=== PATIENT | male | born 1990 | race Caucasian/White ===

== ENCOUNTER 2022-04-29 20:45 | Emergency (ER) | payer SELFPAY ==
[~2022-04-29] VITALS: Ht 167.6 cm; Wt 81.6 kg
[2022-04-29 21:05] VITALS: BP 140/60
--- NOTE | 2022-04-29 21:08 | NUR ---
TO LOBBY A/W BED AMBULATORY
--- NOTE | 2022-04-29 23:12 | NUR ---
PT TO CHAIR B
--- NOTE | 2022-04-29 23:23 | NUR ---
PT TO BED #8
--- NOTE | 2022-04-29 23:30 | NUR ---
31/M BIB SELF C/C SHARP LEFT EAR PAIN 8/10 X"COUPLE WEEKS". PER PATIENT PAIN STARTED A COUPLE WEEKS AGO AND IS UNRELIEVED. DENIES CP/SOB/N/V/D/C/VISUAL CHANGES/HEADACHE. PATIENT IS AAOX4 AND AMBULATORY. DOESNT APPEAR TO BE IN DISTRESS. PLACED IN BED AND GOWN. BED LOW AND LOCKED. ALL NEEDS MET . DENIES PMHX, RX NKA
--- NOTE | 2022-04-30 00:01 | NUR ---
Dr. Dewitt examining patient.
[2022-04-30] MEDS ORDERED: KETOROLAC 60 MG/2 ML VIAL IM ONE (00:05)
[2022-04-30] MEDS ORDERED: IBUP-2213 PO (00:18)
[2022-04-30 00:40] VITALS: BP 119/69
--- NOTE | 2022-04-30 00:40 | NUR ---
Patient discharged with v/s stable. Written and verbal after care instructions given and explained. Patient alert, oriented and verbalized understanding of instructions. Ambulatory with steady gait. All questions addressed prior to discharge. ID band removed. Patient advised to follow up with PMD. Rx of IBUPROFEN given.
--- NOTE | 2022-04-30 00:48 | NUR ---
The patient's care was reviewed and supervised by Bruna Gastelum RN.
== END 2022-04-30 00:40 | disposition home or self-care (01) ==
LOC: MED 20:45
DX: K08.89 Other specified disorders of teeth and supporting structures (principal); H92.02 Otalgia, left ear
CPT/HCPCS: 96372; 99283; J1885